=== PATIENT | male | born 1975 | race African-American/Black ===

== ENCOUNTER 2017-08-27 19:41 | Emergency (ER) | payer SELFPAY ==
[~2017-08-27] VITALS: Ht 190.5 cm; Wt 118.4 kg
[2017-08-27 19:52] VITALS: BP_SYST 149
[2017-08-27 20:55] VITALS: BP_SYST 140
== END 2017-08-27 20:55 | disposition home or self-care (01) ==
LOC: SED 19:41
DX: J01.00 Acute maxillary sinusitis, unspecified (principal); I10 Essential (primary) hypertension
CPT/HCPCS: 36415; 86403; 87081; 99284

== ENCOUNTER 2021-03-31 05:26 | Emergency (ER) | payer MEDICAID, SELFPAY ==
[~2021-03-31] VITALS: Ht 190.5 cm; Wt 120.2 kg
[2021-03-31 05:32] VITALS: BP_SYST 162
--- NOTE | 2021-03-31 05:36 | NUR ---
ER Dr. MATHEW at bedside examining patient.
--- NOTE | 2021-03-31 05:37 | NUR ---
PT BIB FOR DIZZYNESS SINCE LAST NIGHT. PT WAS PLAYING VIDEO GAMES WITH HIS SON LAST NIGHT AND STARTED TO FEEL DIZZY. PT FELL ASLEEP AND THE DIZZYNESS HAS NOT SUBSIDED. PT IS WORRIED ABOUT WHY HE IS SO DIZZY. +NAUSEA, VOMTING. VOMTING X7. PT IS A&OX4, NO OTHER COMPLAINSTS AT THIS TIME
[2021-03-31] MEDS ORDERED: MECLIZINE HCL 25 MG TABLET (ANITVERT) PO ONE ×2 (06:00→07:00)
[2021-03-31] MEDS ORDERED: ONDANSETRON HCL 4 MG/2 ML VIAL IVP ONE ×2 (06:00→07:00)
[2021-03-31] MEDS ORDERED: NACL 0.9% 1,000 ML IV ONE (06:00)
--- NOTE | 2021-03-31 06:10 | NUR ---
Patient transported to radiology via [facility], accompanied by [facility].
--- NOTE | 2021-03-31 06:10 | NUR ---
# 20 gauge angiocath placed to RAC. Use of asceptic technique. Opsite placed over site. Blood return noted. Blood for lab drawn from site. Flushed with 10 cc of normal saline. No evidence of infiltration noted. Patient tolerated well.
[2021-03-31 06:20] LABS: WHITE BLOOD COUNT (AUTO) 6.6 K/uL (4.8-10.8)
[2021-03-31 06:24] LABS: BASOPHILS % (AUTO) 0.6 % (0.0-2.0); EOSINOPHILS % (AUTO) 0.2 % (0.0-4.0); HEMATOCRIT 41.8 % (36-54); LYMPHOCYTES # (AUTO) 1.5 K/uL (1.0-5.5); LYMPHOCYTES % (AUTO) 22.6 % (20.5-51.5); MEAN CORPUSCULAR HEMOGLOBIN 29 pg (27-31); MEAN CORPUSCULAR HGB CONC 34 % (32-36); MEAN CORPUSCULAR VOLUME 88 fL (79.0-98.0); MONOCYTES # (AUTO) 0.3 K/uL (0.0-1.0); MONOCYTES % (AUTO) 4.6 % (1.7-9.3); NEUTROPHILS # (AUTO) 4.8 K/uL (1.8-7.7); PLATELET COUNT (AUTO) 285 K/uL (130-430); RED BLOOD CELL COUNT(AUTO) 4.78 MIL/uL (4.2-6.2); RED CELL DISTRIBUTION WIDTH 13.9 % (9.0-15.0)
[2021-03-31 06:35] LABS: PROTHROMBIN TIME 10.4 SECS (9.5-12.5)
[2021-03-31 06:36] LABS: CREATININE 1.1 mg/dL (0.55-1.30); POTASSIUM 3.9 mmol/L (3.5-5.1)
[2021-03-31 06:47] LABS: ALBUMIN 3.8 g/dL (3.4-4.8); TOTAL BILIRUBIN 0.3 mg/dL (0.0-1.0)
--- NOTE | 2021-03-31 07:07 | NUR ---
care transferred to keyona proctor
[2021-03-31] MEDS ORDERED: MECL-160 PO (07:08)
[2021-03-31] MEDS ORDERED: ONDA-8 TL (07:08)
--- NOTE | 2021-03-31 07:10 | NUR ---
Assumed care of patient, report received from LAURA Coronado. Pt currently resting in bed, no acute distress noted.
[2021-03-31 08:05] VITALS: BP_SYST 162
--- NOTE | 2021-03-31 08:05 | NUR ---
Patient given written and verbal discharge instructions and verbalizes understanding. ER MD discussed with patient the results and treatment provided. Patient in stable condition. ID arm band removed. IV catheter removed intact and dressing applied, no active bleeding. Rx of Meclazine and Zofran given. Patient educated on pain management and to follow up with PMD. Pain Scale 0. Opportunity for questions provided and answered. Medication side effect fact sheet provided.
== END 2021-03-31 08:05 | disposition home or self-care (01) ==
LOC: SED 05:26
DX: H81.10 Benign paroxysmal vertigo, unspecified ear (principal); I10 Essential (primary) hypertension
CPT/HCPCS: 36415; 70450; 76376; 80053; 84484; 85025; 85610; 85730; 93005; 96361; 96374; 96376; 99285; J2405; J7030; J8597